=== PATIENT | male | born 1980 | race Caucasian/White ===

== ENCOUNTER 2024-08-19 00:24 | Inpatient (IN) | payer SELFPAY, OTHER ==
[2024-08-19] MEDS ORDERED: fentaNYL 50 mcg/mL 1 mL Vial ONE ×2 (00:29→01:56)
[2024-08-19] MEDS ORDERED: Sodium Chloride 0.9% 100 ML ONE (00:29)
[2024-08-19] MEDS ORDERED: CEFAZOLIN 2 GM VIAL ONE (00:29)
[2024-08-19] MEDS ORDERED: Boostrix 0.5 ML (Tdap) VIAL (>/=7 yrs of age) ONE (00:30)
[2024-08-19 00:50] LABS: #Basophils 0.09 10x3/uL (0.0-0.2); %Basophils 0.6 % (0.0-1.0); %Eosinophils 1.9 % (0.0-10.0); %Lymphocytes 16.2 % (21.0-51.0); %Monocytes 7.6 % (0.0-10.0); %Neutrophils 72.9 % (42.0-75.0); Hematocrit 46.6 % (42.0-52.0); Hemoglobin 16.5 g/dL (14.0-18.0); Mean Corpuscular HGB CONC 35.4 g/dL (32.0-36.0); Mean Corpuscular Hemoglobin 32.9 pg (27.0-31.0); Mean Platelet Volume 10.4 fL (7.4-10.4); Platelet Count 290 10x3/uL (130-400); RBC Distribution Width 12.9 % (11.5-14.5); Red Blood Cell (RBC) Count 5.01 mill/uL (4.70-6.10)
[2024-08-19 01:17] LABS: INR-International Normal Ratio 1.1; PTT 31.3 sec (22.9-36.1); Prothrombin Time 14.4 sec (12.0-14.7)
[2024-08-19 01:36] LABS: Alcohol 220.6 mg/dL (Less than 10)
[2024-08-19 01:39] LABS: ALT (SGPT) 28 U/L (8-55); AST (SGOT) 53 U/L (5-34); Albumin 4.3 g/dL (3.5-5.0); Alkaline Phosphatase 87 U/L (40-110); Anion Gap 19 mmol/L (10-20); BUN (Urea Nitrogen) 8 mg/dL (8.9-20.6); Bilirubin, Total 0.8 mg/dL (0.2-1.2); Calc. Creatinine Clearance 0 mL/min (70-130); Calcium 8.3 mg/dL (7.8-10.44); Carbon Dioxide 17 mmol/L (22-29); Chloride 99 mmol/L (98-107); Estimated GFR 86; Globulin 3.4 g/dL (2.4-3.5); Glucose 117 mg/dL (70-105); Lipase 28 U/L (8-78); Potassium 2.9 mmol/L (3.5-5.1); Protein, Total 7.7 g/dL (6.0-8.3); Sodium 132 mmol/L (136-145)
[2024-08-19] MEDS ORDERED: Lidocaine 1% w/Epinephrine 1:100K 20 ML VIAL ONE (01:49)
[2024-08-19] MEDS ORDERED: Dextrose 50% Abboject 50 ML SYRINGE SLOW IVP PRN (02:26)
[2024-08-19] MEDS ORDERED: Glucagon 1 MG/ML KIT IM PRN (02:26)
[2024-08-19] MEDS ORDERED: Dextrose 5% in Water 1,000 ML IV PRN (02:26)
[2024-08-19] MEDS ORDERED: Promethazine HCl 25 MG/ML VIAL IM PRN (02:26)
[2024-08-19] MEDS: Sodium Chloride 0.9% 1,000 ML IV SCH (03:40)
[2024-08-19] MEDS ORDERED: Potassium Chloride 20 MEQ (100 mL) BAG ONE (03:41)
[2024-08-19] MEDS ORDERED: Morphine 2 MG/ML VIAL ONE (04:04)
[2024-08-19] MEDS ORDERED: Ondansetron PF 4 MG/2 ML Vial ONE (04:04)
[2024-08-19] MEDS: Morphine 4 MG/ML VIAL SLOW IVP PRN (04:12)
[2024-08-19] MEDS: Ondansetron PF 4 MG/2 ML Vial IVP PRN (04:13)
[2024-08-19 04:17] VITALS: BMI 23.6
[2024-08-19 05:45] LABS: #Basophils 0.04 10x3/uL (0.0-0.2); #Eosinphils Less than 0.03 10x3/uL (0.0-0.7); %Basophils 0.2 % (0.0-1.0); %Lymphocytes 3.1 % (21.0-51.0); %Monocytes 8.4 % (0.0-10.0); %Neutrophils 87.8 % (42.0-75.0); Hematocrit 43.7 % (42.0-52.0); Hemoglobin 15.8 g/dL (14.0-18.0); Mean Corpuscular HGB CONC 36.2 g/dL (32.0-36.0); Mean Corpuscular Hemoglobin 33.2 pg (27.0-31.0); Mean Corpuscular Volume 91.8 fL (78.0-98.0); Mean Platelet Volume 10.3 fL (7.4-10.4); Platelet Count 263 10x3/uL (130-400); RBC Distribution Width 12.9 % (11.5-14.5); Red Blood Cell (RBC) Count 4.76 mill/uL (4.70-6.10)
[2024-08-19 06:10] LABS: Anion Gap 17 mmol/L (10-20); BUN (Urea Nitrogen) 6 mg/dL (8.9-20.6); Calc. Creatinine Clearance 117 mL/min (70-130); Calcium 8.2 mg/dL (7.8-10.44); Carbon Dioxide 18 mmol/L (22-29); Chloride 102 mmol/L (98-107); Estimated GFR 112; Glucose 109 mg/dL (70-105); Potassium 3.7 mmol/L (3.5-5.1); Sodium 133 mmol/L (136-145)
[2024-08-19] MEDS ORDERED: Pantoprazole 40 MG VIAL ONE (10:10)
[2024-08-19] MEDS ORDERED: Azithromycin 500 MG VIAL ONE (10:11)
[2024-08-19] MEDS ORDERED: Sodium Chloride 0.9% 250 ML 250 ML ONE (10:11)
[2024-08-19] MEDS: Azithromycin 500 MG in Sodium Chloride 0.9% 250 ML 250 ML IVPB SCH (10:32)
[2024-08-19] MEDS: Famotidine/PF 20 mg/2ml Vial SLOW IVP SCH (10:33)
[2024-08-19] MEDS ORDERED: Iopamidol 370 76% 100 ML VIAL ONE (13:17)
[2024-08-19] MEDS: Multivitamins, Adult 10 ML, Thiamine HCl 100 MG, Folic Acid 1 MG in Dextrose 5 %-0.45 %... IV SCH (15:23)
[2024-08-19] MEDS: traMADol HCl 50 MG TAB PO PRN (15:51)
[2024-08-19] MEDS: Acetaminophen 325 MG TAB PO PRN (15:52)
[2024-08-20 11:25] VITALS: BP 138/72; TEMP 98.4
== END 2024-08-20 14:04 | disposition home or self-care (01) | DRG 201 ==
LOC: ERS 00:24 → ERHOLD 02:26 → SURG B 13:17
PROVIDERS: ADMIT Surgery; ATTEND Surgery
PROC: 0W9B30Z Drainage of Left Pleural Cavity with Drainage Device, Percutaneous Approach (ICD-10-PCS; principal; 2024-08-19)
DX: S27.0XXA Traumatic pneumothorax, initial encounter (principal); F10.129 Alcohol abuse with intoxication, unspecified; V49.9XXA Car occupant (driver) (passenger) injured in unspecified traffic accident, initial encounter; Y93.I9 Activity, other involving external motion; Y92.89 Other specified places as the place of occurrence of the external cause; Z79.899 Other long term (current) drug therapy; Y90.8 Blood alcohol level of 240 mg/100 ml or more
CPT/HCPCS: 32551; 36415; 70450; 70486; 71045; 71250; 71260; 72125; 74177; 80307; 83690; 85025; 85610; 85730; 90715; 96365; 96375; G0390; J0456; J2272; J2405; J2470; J3010; J3411; J3480; J3490; J7030; J7042; J7050; Q9967